=== PATIENT | female | born 1965 | race Caucasian/White ===

== ENCOUNTER → 2016-09-23 | Day surgery (SDC) | payer BC ==
[~2016-09-23] MED LIST: LIPITOR TAB 2020 MG PO; MINIVELLE1 EAC1 TD; NAPROSYN500 MG PO; NORCO 5-325 TA1 EACH PO; PRILOSEC OTC20 MG PO; PYRIDIUM200 MG PO; ZETIA10 MG PO
== END | disposition home or self-care (01) ==
LOC: OR 11:00
PROVIDERS: Obstetrics & Gynecology
PROC: 0TV78ZZ Restriction of Left Ureter, Via Natural or Artificial Opening Endoscopic (ICD-10-PCS; principal; 2016-09-23 15:15)
DX: N36.42 Intrinsic sphincter deficiency (ISD) (principal); R32 Unspecified urinary incontinence; R21 Rash and other nonspecific skin eruption; M17.9 Osteoarthritis of knee, unspecified; K21.9 Gastro-esophageal reflux disease without esophagitis; I83.10 Varicose veins of unspecified lower extremity with inflammation; G47.33 Obstructive sleep apnea (adult) (pediatric); E78.5 Hyperlipidemia, unspecified; Z79.899 Other long term (current) drug therapy; Z90.710 Acquired absence of both cervix and uterus; Z87.891 Personal history of nicotine dependence; Z82.3 Family history of stroke; Z83.49 Family history of other endocrine, nutritional and metabolic diseases; Z82.5 Family history of asthma and other chronic lower respiratory diseases; Z82.49 Family history of ischemic heart disease and other diseases of the circulatory system
CPT/HCPCS: J1100; J2250; J2795; J3010; J7120; L8603